=== PATIENT | male | born 1960 | race Hispanic/Latino ===

== ENCOUNTER 2020-08-24 06:14 | Emergency (ER) | payer SELFPAY ==
[~2020-08-24] VITALS: Ht 175.3 cm; Wt 89.8 kg
[2020-08-24] MEDS ORDERED: ACETAMINOPHEN 325 MG TAB ONE (06:24)
--- NOTE | 2020-08-24 06:33 | Emergency Department Note ---
History of Present Illnes History of Present Illness Chief Complaint: COVID PUI History of Present Illness This is a 60 year old male PT C/O HEADACHE AND LOTS OF FEVER ALL NIGHT LONG, DENIES COUGH, SORE THROAT, SOB, LOSS OF TASTE AND SMELL, DENIES KNOWN EXPOSURE TO COVID SICK PEOPLE BUT GOT BACK FROM [place] 2 DAYS AGO. Historian: Patient Arrival Mode: Car Wreath And Garland Maker Required: No Onset (how long ago): hour(s) (started last night) Radiation: Reports non-radiation Severity: moderate Onset quality: gradual Timing of current episode: intermittent Progression: waxing and waning Chronicity: new Context: Reports recent travel (just came from [place] 5 days ago) Relieving factors: none Exacerbating factors: none Associated symptoms: Reports headaches; Denies chest pain, Denies cough, Denies shortness of breath, Denies weakness Past Medical/Family History Physician Review I have reviewed the patient's past medical and family history. Any updates have been documented here. Past Medical History Recent Fever: No Clinical Suspicion of Infectio: No New/Unexplained Change in Ment: No Past Medical History: None Past Surgical History: None Social History Smoking Cessation: Never Smoker Counseling Performed: No Alcohol Use: None Any Illegal Drug Use: No Physically hurt or threatened: No Family History Family history of heart diseas: No Other Any Pre-Existing Lines (PICC,: No Review of Systems Review of Systems Constitutional: Reports chills, Reports fever EENTM: Reports no symptoms Cardiovascular: Reports no symptoms Respiratory: Reports no symptoms Gastrointestinal: Reports no symptoms Genitourinary: Reports no symptoms Musculoskeletal: Reports no symptoms Integumentary: Reports no symptoms Neurological: Reports headache Psychological: Reports no symptoms Endocrine: Reports no symptoms Hematological/Lymphatic: Reports no symptoms Physical Exam Related Data Allergies: Coded Allergies: No Known Allergies (Unverified , 08/24/20) Triage Vital Signs Vital Signs Date Time Temp Pulse Resp B/P (MAP) Pulse Ox O2 Delivery O2 Flow Rate FiO2 08/24/20 06:16 102.2 99 20 124/98 97 Room Air Vital signs reviewed: Yes Physical Exam CONSTITUTIONAL Constitutional: Present well-developed, Present well-nourished HENT HENT: Present normocephalic, Present atraumatic, Present oropharynx clear/moist, Present nose normal HENT L/R: Present left ext ear normal, Present right ext ear normal EYES Eyes: Reports PERRL, Reports conjunctivae normal NECK Neck: Present ROM normal, Present supple, Present other (no meningeal signs) PULMONARY Pulmonary: Present effort normal, Present breath sounds normal CARDIOVASCULAR Cardiovascular: Present regular rhythm, Present heart sounds normal, Present capillary refill normal, Present normal rate GASTROINTESTINAL Abdominal: Present soft, Present nontender, Present bowel sounds normal GENITOURINARY Genitourinary: Present exam deferred SKIN Skin: Present warm, Present dry MUSCULOSKELETAL Musculoskeletal: Present ROM normal NEUROLOGICAL Neurological: Present alert, Present oriented x 3, Present DTRs normal, Present no gross motor or sensory deficits; Absent cranial nerve deficit, Absent sensory deficit, Absent weakness PSYCHOLOGICAL Psychological: Present mood/affect normal, Present judgement normal Assessment & Plan Medical Decision Making MDM pt with fever/chills, no other sx's except mild headaches, exam normal. Possible COVID19, just came here from [place] Reassessment Reassessment teaching done regarding COVID19, information provided, get tested at testing site, self-quarantine/self-isolate, proning instructions, Tylenol as directed, F/U PCP, RTED if sx's worsen, SOB, etc Assessment & Plan Final Impression: (1) Suspected COVID-19 virus infection Depart Disposition: HOME, SELF-CARE Last Vital Signs Date Time Temp Pulse Resp B/P (MAP) Pulse Ox O2 Delivery O2 Flow Rate FiO2 08/24/20 06:16 102.2 99 20 124/98 97 Room Air Medications in the ED Acetaminophen 975 mg STK-MED ONCE .ROUTE ; Start 08/24/20 at 06:24; Stop 08/24/20 at 06:18; Status DC PHILL PATINO MD Aug 24, 2020 06:33
== END 2020-08-24 06:49 | disposition home or self-care (01) ==
LOC: ER 06:29
DX: R50.9 Fever, unspecified (principal); R51 Headache; Z20.828 Contact with and (suspected) exposure to other viral communicable diseases
CPT/HCPCS: 99282